=== PATIENT | male | born 1970 | race African-American/Black ===

== ENCOUNTER 2018-12-07 13:44 | Emergency (ER) | payer OTHER ==
[~2018-12-07] VITALS: Ht 172.7 cm; Wt 63.5 kg
[2018-12-07] MEDS ORDERED: ZYRTEC10 M2 PO (14:31)
[2018-12-07] MEDS ORDERED: AMOXICILLIN 50500 M1 PO (14:31)
[2018-12-07 15:03] VITALS: BP 112/74
== END 2018-12-07 15:04 | disposition home or self-care (01) ==
LOC: ER 13:44
DX: H66.93 Otitis media, unspecified, bilateral (principal); J30.9 Allergic rhinitis, unspecified; M25.512 Pain in left shoulder; F17.210 Nicotine dependence, cigarettes, uncomplicated